=== PATIENT | female | born 1955 | race Caucasian/White ===

== ENCOUNTER 2016-08-28 12:46 | Emergency (ER) | payer OTHER ==
[~2016-08-28] VITALS: Ht 162.5 cm; Wt 76.7 kg
--- NOTE | ~2016-08-28 | EKG ---
[place], [place] ELECTROCARDIOGRAM REPORT NAME: [id number] UNIT #: [id number] ROOM: DOCTOR: OMID CANO MD BIRTHDATE: [birth year] DOS: 08/28/2016 TIME: 13:42 p.m. FINDINGS: Sinus bradycardia at rate of 50. Low voltage in standard limb leads. Probable left atrial enlargement. Nonspecific ST and T-wave changes. Abnormal electrocardiogram. OMID CANO MD CM:EKGRPT:ELECTROCARDIOGRAM REPORT [id number] OMID CANO MD
[~2016-08-28 12:46] MED LIST: BACTRIM DS 8001 TA1 PO; BIAXIN500 MG PO; CEPHALEXIN500 M1 PO; CIPROFLOXACIN500 MG PO; CLARITIN10 MG PO; CLINDAMYCIN HC300 MG PO; FLAGYL500 MG PO; HYDROCODONE BIT1 T11 PO; TESSALON PERLE100 MG PO; TRAMADOL HCL50 MG PO; VOLTAREN75 MG PO; ZANTAC150 MG PO; ZOFRAN4 MG PO
[2016-08-28 13:35] LABS: BASO % 0.2 % (0.0-1.0); HEMATOCRIT 41.6 % (37.0-47.0); HEMOGLOBIN 13.9 g/dl (12.0-16.0); LYMPH # 1.2 10*3/uL (1.3-4.4); LYMPH % 11.5 % (27.0-41.0); MEAN CELL VOLUME 89.1 fl (81.0-99.0); MEAN CORPUSCULAR HGB 29.8 pg (27.0-31.0); MEAN CORPUSCULAR HGB CONC 33.4 g/dl (33.0-37.0); MEAN PLATELET VOLUME 9.5 fl (9.6-12.3); MONO # 0.8 10*3/uL (0.1-1.0); MONO % 7.7 % (3.0-9.0); NEUT # 8.4 10*3/uL (2.3-7.9); NEUT % 80.3 % (47.0-73.0); PLATELET COUNT AUTOMATED 330 10*3/uL (130-400); RED BLOOD COUNT 4.67 10*6/uL (4.10-5.10); RED CELL DISTRI WIDTH 12.4 % (0-14.5); WHITE BLOOD COUNT 10.4 10*3/uL (4.8-10.8)
[2016-08-28 13:51] LABS: ALBUMIN 3.2 gm/dl (3.1-4.5); ALKALINE PHOSPHATASE 89 U/L (45-117); BILIRUBIN, TOTAL 0.2 mg/dl (0.2-1.0); BUN 9 mg/dl (7-24); CARBON DIOXIDE 26 mmol/L (21-32); CHLORIDE 104 mmol/L (98-107); EST GLOM FILT AFRICAN AMERICAN > 60 ml/min; GLUCOSE 121 mg/dL (65-99); SGOT/AST 13 IU/L (3-35); SGPT/ALT 11 U/L (12-78); SODIUM 139 mmol/L (136-145); TOTAL PROTEIN 6.5 gm/dL (6.4-8.2)
[2016-08-28 13:52] LABS: TROPONIN I < 0.015 ng/ml (<0.045)
[2016-08-28 15:05] LABS: BILIRUBIN 1+ (NEGATIVE); BLOOD 1+ (NEGATIVE); CLARITY SL CLOUDY (CLEAR); COLOR YELLOW (YELLOW); GLUCOSE NEGATIVE (NEGATIVE); KETONE 2+ (NEGATIVE); LEUKO ESTERASE NEGATIVE (NEGATIVE); NITRITE NEGATIVE (NEGATIVE); PH 5.5 (5.0-9.0); PROTEIN TRACE (NEGATIVE); SPECIFIC GRAVITY >= 1.030 (1.005-1.030); UROBILINOGEN 0.2 E.U./dl (0.2-1.0)
[2016-08-28 15:10] LABS: MUCOUS 1+
[2016-08-28 15:11] LABS: BACTERIA TRACE; URINE REFLEX COMMENT YES (NO); WBC 0-2 wbc/hpf (0-5)
[2016-08-28] MEDS ORDERED: PREDNISONE20 M1 PO ×2 (15:18→15:29)
[2016-08-28] MEDS ORDERED: ZITHROMAX250 MG PO ×2 (15:18→15:29)
[2016-08-28] MEDS ORDERED: ZOFRAN ODT4 MG SL ×2 (15:18→15:29)
== END 2016-08-28 15:30 | disposition home or self-care (01) ==
LOC: ED 12:46
PROVIDERS: Nurse Practitioner Family
DX: J20.9 Acute bronchitis, unspecified (principal); F17.200 Nicotine dependence, unspecified, uncomplicated; Z88.0 Allergy status to penicillin

== ENCOUNTER 2023-11-17 13:21 | Emergency (ER) | payer OTHER ==
[~2023-11-17] VITALS: Wt 81.6 kg
[~2023-11-17 13:21] MED LIST changes: +PREDNISONE20 M1 PO; +ZITHROMAX250 MG PO; +ZOFRAN ODT4 MG SL
[2023-11-17] MEDS ORDERED: KENALOG 0.1%80 GM T ×2 (14:13→14:39)
== END 2023-11-17 14:16 | disposition home or self-care (01) ==
LOC: ED 13:21
DX: T65.6X1A Toxic effect of paints and dyes, not elsewhere classified, accidental (unintentional), initial encounter (principal); L23.4 Allergic contact dermatitis due to dyes; Z88.0 Allergy status to penicillin; Z98.890 Other specified postprocedural states; Y92.89 Other specified places as the place of occurrence of the external cause

== ENCOUNTER → 2024-01-01 | Outpatient (CLI) | payer OTHER ==
[~2024-01-01] MED LIST changes: +KENALOG 0.1%80 GM T
== END | disposition home or self-care (01) ==
LOC: LAB 13:31
PROVIDERS: ATTEND Internal Medicine
DX: K52.9 Noninfective gastroenteritis and colitis, unspecified (principal)

== ENCOUNTER → 2024-07-03 | Outpatient (CLI) | payer OTHER | END | disposition home or self-care (01) | LOC: LAB 12:23 | PROVIDERS: ATTEND Internal Medicine | DX: R19.7 Diarrhea, unspecified (principal) ==

== ENCOUNTER → 2024-09-24 | Outpatient (CLI) | payer OTHER | END | disposition home or self-care (01) | LOC: RAD 12:05 | PROVIDERS: ATTEND Internal Medicine | DX: M47.816 Spondylosis without myelopathy or radiculopathy, lumbar region (principal); M71.58 Other bursitis, not elsewhere classified, other site; M54.9 Dorsalgia, unspecified ==

== ENCOUNTER → 2025-03-11 | Outpatient (CLI) | payer OTHER | END | disposition home or self-care (01) | LOC: LAB 11:15 | PROVIDERS: ATTEND Internal Medicine Gastroenterology | DX: K52.9 Noninfective gastroenteritis and colitis, unspecified (principal) ==